=== PATIENT | female | born 1995 | race Caucasian/White ===

== ENCOUNTER 2017-01-29 00:47 | Inpatient (IN) | payer MEDICAID, OTHER ==
--- NOTE | 2017-01-29 01:42 | ED ---
Psych HPI - General Chief Complaint: Psychiatric Symptoms Stated Complaint: Mental Health Time Seen by Provider: 01/29/17 01:05 Source: patient, RN notes reviewed Mode of arrival: ambulatory Limitations: no limitations - History of Present Illness Initial Comments: 21-year-old female presents emergency Department with chief complaint of psychiatric evaluation. Patient states she's having a mental breakdown, possible psychotic break through. States she's been under a lot of stress in which she recently lost her children, significant other left her. Patient states that she has some personality changes she states she's been doing things that she's not aware of. He will room states that she is just not acting appropriately that they sometimes at the restrainer because she is just acting out. Patient states she normally is on multiple psychiatric medications though she is not on any of these medications. Patient states she has been self- medicating with marijuana and benzodiazepines. Patient denies any alcohol abuse. She states that she is not suicidal or homicidal at this time though she states that she started herself the other day. Patient is petition by friends in the room. - Related Data Previous Rx's Medication Instructions Recorded Hydrocodone/Acetaminophen [[place] 1 each PO Q6HR PRN #20 tab 08/30/14 5-325] methylPREDNISolone [Medrol] 1 pack PO DIRECTED #1 tab.ds.pk 08/30/14 Allergies Allergy/AdvReac Type Severity Reaction Status Date / Time aripiprazole [From Abilify] Allergy Rash/Hives Verified 08/30/14 14:10 Review of Systems ROS Statement: Those systems with pertinent positive or pertinent negative responses have been documented in the HPI. ROS Other: All systems not noted in ROS Statement are negative. Past Medical History Past Medical History: Asthma Additional Past Medical History / Comment(s): BORDERLINE PERSONALITY DISORDER History of Any Multi-Drug Resistant Organisms: None Reported Past Surgical History: Section, Tonsillectomy Additional Past Surgical History / Comment(s): SX ON STOMACH WHEN BABY Past Psychological History: Anxiety, Bipolar, Depression Smoking Status: Current every day smoker Past Alcohol Use History: None Reported Past Drug Use History: Marijuana General Exam Limitations: no limitations General appearance: alert, in no apparent distress Head exam: Present: atraumatic, normocephalic, normal inspection Eye exam: Present: normal appearance, PERRL, EOMI. Absent: scleral icterus, conjunctival injection, periorbital swelling Neck exam: Present: normal inspection, full ROM. Absent: tenderness, meningismus, lymphadenopathy Respiratory exam: Present: normal lung sounds bilaterally. Absent: respiratory distress, wheezes, rales, rhonchi, stridor Cardiovascular Exam: Present: regular rate, normal rhythm, normal heart sounds. Absent: systolic murmur, diastolic murmur, rubs, gallop, clicks Psychiatric exam: Present: anxious Skin exam: Present: warm, dry, intact, normal color. Absent: rash Course Vital Signs 01/29/17 00:51 Temperature 98.0 F Pulse Rate 95 Respiratory 16 Rate Blood Pressure 129/82 O2 Sat by Pulse 100 Oximetry Medical Decision Making - Lab Data Lab Results 01/29/17 Range/Units 02:10 Urine Opiates Screen Detected H (NotDetected) Ur Oxycodone Screen Not Detected (NotDetected) Urine Methadone Screen Not Detected (NotDetected) Ur Propoxyphene Screen Not Detected (NotDetected) Ur Barbiturates Screen Not Detected (NotDetected) U Tricyclic Antidepress Not Detected (NotDetected) Ur Phencyclidine Scrn Not Detected (NotDetected) Ur Amphetamines Screen Not Detected (NotDetected) U Methamphetamines Scrn Detected H (NotDetected) U Benzodiazepines Scrn Detected H (NotDetected) Urine Cocaine Screen Not Detected (NotDetected) U Marijuana (THC) Screen Detected H (NotDetected) Disposition Clinical Impression: Drug-induced psychotic disorder Disposition: ADMITTED IP TO THIS [facility] Condition: Stable Referrals: None,Stated [Primary Care Provider] - 1-2 days
[2017-01-29] MEDS ORDERED: ZIPRASIDONE 20 MG VIAL IM PRN (03:32)
[2017-01-29] MEDS ORDERED: MAG HYDROX/AL HYDROX/SIMETH 30 ML CUP PO PRN (03:32)
[2017-01-29] MEDS ORDERED: MAGNESIUM HYDROXIDE 2,400 MG/10 ML CUP PO PRN (03:32)
[2017-01-29 04:47] VITALS: RESP 16
--- NOTE | 2017-01-29 11:11 | P.MDCNMH ---
History of Present Illness H&P Date: 01/29/17 Chief Complaint: ''Mental breakdown'' 21-year-old female presents emergency Department with chief complaint of psychiatric evaluation. Patient has been having a ''mental breakdown'', progressively worsening anxiety symptoms, with associated hallucinations and delusions. She's been under a lot of stress lately because she recently lost her children, significant other left her. Patient states that she has some personality changes she states she's been doing things that she's not aware of. She has also been seeing people that don't exist, hearing their voices as well , talking to them like they were real people. She states that it has been '' scary'' to others to be around her lately. She tried to cut her wrist and arm twice over the last several days. Patient states she was on multiple psychiatric medications years ago but she stopped taking everything by herself. She hasn't been sleeping much the last few weeks, she would go 6-7 days without any sleep then she would sleep for a night. Patient states she has been self- medicating with marijuana and benzodiazepines. Patient denies any alcohol abuse. She states that she is not suicidal or homicidal at this time. Review of Systems 12 point review of system was performed, negative except for what is stated in HPI Past Medical History Past Medical History: Asthma Additional Past Medical History / Comment(s): BORDERLINE PERSONALITY DISORDER History of Any Multi-Drug Resistant Organisms: None Reported Past Surgical History: Section, Tonsillectomy Additional Past Surgical History / Comment(s): SX ON STOMACH WHEN BABY Past Psychological History: Anxiety, Bipolar, Depression Smoking Status: Current every day smoker Past Alcohol Use History: None Reported Past Drug Use History: Marijuana Medications and Allergies Home Medications Medication Instructions Recorded Confirmed Type No Known Home Medications [No 01/29/17 01/29/17 History Known Home Medications] Allergies Allergy/AdvReac Type Severity Reaction Status Date / Time aripiprazole [From Abilify] Allergy Rash/Hives Verified 08/30/14 14:10 Physical Exam Vitals: Vital Signs Temp Pulse Pulse Resp BP BP Pulse Ox 01/29/17 04:46 97.4 F L 80 16 103/55 100 01/29/17 03:22 98.0 F 87 18 115/58 98 01/29/17 00:51 98.0 F 95 16 129/82 100 Intake and Output 01/28/17 01/29/17 01/29/17 22:59 06:59 14:59 Other: Weight 54.6 kg Constitutional: No acute distress, conversant, pleasant Eyes:Anicteric sclerae, moist conjunctiva, no lid-lag, PERRLA, ENMT: Oropharynx clear, no erythema, exudates Neck: Supple, FROM, no masses, or JVD, No carotid bruits, No thyromegaly Lungs: Clear to auscultation, Clear to percussion, Normal respiratory effort, no accessory muscle use Cardiovascular: Heart regular in rate and rhythm, No murmurs, gallops, or rubs, No peripheral edema Abdominal: Soft, Nontender, no guarding, rebound or rigidity, Normoactive bowel sounds, No hepatomegaly, No splenomegaly, No palpable mass Skin: Normal temperature, tone, texture, turgor, no induration, No subcutaneous nodules, No rash, lesions, No ulcers Extremities: No digital cyanosis, No clubbing, Pedal pulses intact and symmetrical, Radial pulses intact and symmetrical, No calf tenderness Psychiatric: Alert and oriented to person, place and time, appropriate affect, intact judgement Neuro: Muscles Strength 5/5 in all 4 extremities, Sensation to light touch grossly present throughout, Cranial nerves II-XII grossly intact, no focal sensory deficits - Constitutional General appearance: no acute distress Cranial Nerve Examination - Cranial Nerves Cranial Nerve II- Optic: Intact Cranial Nerve III- Oculomotor: Intact Cranial Nerve IV- Trochlear: Intact Cranial Nerve V- Trigeminal: Intact Cranial Nerve - Abducens: Intact Cranial Nerve VII- Facial: Intact Cranial Nerve VIII- Auditory: Intact Cranial Nerve IX- Glossopharyngeal: Intact Cranial Nerve X- Vagus: Intact Cranial Nerve XI- Accessory: Intact Cranial Nerve XII- Hypoglossal: Intact Results Labs: Abnormal Lab Results - Last 24 Hours (Table) 01/29/17 Range/Units 02:10 Urine Opiates Screen Detected H (NotDetected) U Methamphetamines Scrn Detected H (NotDetected) U Benzodiazepines Scrn Detected H (NotDetected) U Marijuana (THC) Screen Detected H (NotDetected) Assessment and Plan Plan: 1-Acute severe anxiety disorder with psychotic features: Management per psych 2-Drug use disorder Labs reviewed Urine tox positive for marijuana, opiates, amphetamines and benzos. Heat Treating Furnace Tender regarding drug use. Psych to evaluate 3-Asthma, mild intermittent Stable Not requiring treatment at this point.
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
[2017-01-30] MEDS: ACETAMINOPHEN TAB 325 MG TAB PO PRN ×2 (06:25→11:30)
[2017-01-30 06:33] VITALS: BP 120/67; PULSE 79; TEMP 98.2
[2017-01-30] MEDS: LORazepam 1 MG TAB PO PRN (08:05)
[2017-01-30 08:57] LABS: Anisocytosis Slight; Basophils % (A) 1 %; CHCM 30.8; Eosinophils # (A) 0.1 k/uL (0-0.7); Eosinophils % (A) 2 %; HCT 39.4 % (34.0-46.0); HDW 2.57; HGB 12.1 gm/dL (11.4-16.0); Hypochromasia Moderate; Luc # (Auto) 0.12; Luc % (Auto) 2; Lymphocytes # (A) 1.8 k/uL (1.0-4.8); Lymphocytes % (A) 25 %; MCHC 30.8 g/dL (31.0-37.0); MCV 84.5 fL (80.0-100.0); Mean Platelet Volume 7.6; Monocytes # (A) 0.4 k/uL (0-1.0); Monocytes % (A) 6 %; Neutrophils # (A) 4.7 k/uL (1.3-7.7); Neutrophils % (A) 65 %; RBC 4.66 m/uL (3.80-5.40); RDW 17.3 % (11.5-15.5); WBC 7.2 k/uL (3.8-10.6); WBC (Perox) 7.56
[2017-01-30 09:16] LABS: ALT 30 U/L (9-52); AST 16 U/L (14-36); Alkaline Phosphatase 69 U/L (38-126); Anion Gap 7 mmol/L; Blood Urea Nitrogen 6 mg/dL (7-17); Calcium 9.4 mg/dL (8.4-10.2); Carbon Dioxide 21 mmol/L (22-30); Chloride 111 mmol/L (98-107); Cholesterol 130 mg/dL (<200); Glucose 108 mg/dL (74-99); HDL Cholesterol 57 mg/dL (40-60); Non-African American GFR(MDRD) >60 (>60 ml/min/1.73 sqM); Potassium 4.4 mmol/L (3.5-5.1); Sodium 139 mmol/L (137-145); Total Bilirubin 0.2 mg/dL (0.2-1.3); Total Protein 6.2 g/dL (6.3-8.2)
[2017-01-30 10:16] LABS: HCG,Qualitative Serum Not Detected
[2017-01-30] MEDS: AMANTADINE HCL 100 MG CAP PO SCH (11:30)
[2017-01-30] MEDS: ESCITALOPRAM 10 MG TAB PO SCH (11:30)
[2017-01-30] MEDS ORDERED: IBUPROFEN 400 MG TAB PO PRN (11:38)
[2017-01-30] MEDS ORDERED: CYCLOBENZAPRINE 10 MG TAB PO PRN (11:38)
--- NOTE | 2017-01-30 19:00 | P.PN ---
Progress Note - Text Progress Note Date: 01/30/17 INTERVAL HISTORY: Patient interviewed twice. She continues to be oppositional and labile although less so today. Patient is fixated today on discharge so she can get to see her children. Patient's securities attorney met with patient today and reported to treatment team that patient had a hearing scheduled for tomorrow (case is not a mental health). Horizontal Boring Mill Set Up Operator reports that since patient is not ready for discharge he will file for extension. Patient denies recent blackout episodes, SI, HI. MENTAL STATUS EXAM: * Appearance: alert, well groomed, appears stated age, steady gait * Behavior: no psychomotor agitation or psychomotor retardation, no abnormal movements, fair eye contact * Attitude: cooperative * Speech: normal rate, rhythm, fluency, articulation, volume, and prosody; primary language: Bengali * Mood: euthymic * Affect: congruent, reactive * Thought processes: linear, organized * Thought content: patient does not appear to be responding to internal stimuli ; patient denies auditory and visual hallucinations, no delusions appreciated * Insight: fair * Judgment: fair * Cognitive: oriented to all 3 spheres, average intelligence PLAN: * Continue hospitalization * * Continue Lexapro 10-mg PO QAM * * Start Amantadine 100-mg PO QAM * * Patient again encouraged to attend group, recreational, and activity therapes
[2017-01-31] MEDS: ESCITALOPRAM 10 MG TAB PO SCH (07:42)
[2017-01-31] MEDS: AMANTADINE HCL 100 MG CAP PO SCH (07:42)
[2017-01-31] MEDS: LORazepam 1 MG TAB PO PRN (07:43)
--- NOTE | 2017-02-04 23:29 | P.DS ---
Providers Date of admission: 01/29/17 03:29 Expected date of discharge: 01/31/17 Attending physician: Oswald Walker DO Consults: 01/29/17 03:32 Consult Physician Routine Consulting Provider: Farhan Fleming Consult Reason/Comments: H&P medical mangement Do you want consulting provider notified?: Already Contacted Primary care physician: Stated None - Discharge Diagnosis(es) (1) Borderline personality disorder Status: Acute (2) Mood disorder Status: Acute Hospital Course: Per SW: family meeting held with pt's friend Kim via phone. She confirmed pt is ready for dc and she expressed no concerns r/t her returning home upon d/c today. Pt friend presents as supportive stating she will help pt fill her rx and will pick her up today if dc. Pt states she is ready for dc and motivated to start services at [facility]. Pt denies s/h/i. Patient is 21 year female who presented to the Emergency Department requesting a psychiatric evaluation for increased anxiety and new onset hallucinations that started that started approximately 4 days ago. Patient is highly oppositional during interview and requires multiple prompts. She stated that she feels under a lot a stress, recently lost custody of her 2 children who are now in foster care, and her boyfriend broke up with her. She endorses blackout episodes, auditory and visual hallucinations of people and voices. Patient reports two attempts to cut her wrists twice this last week and walking around her apartment with a box repairer knife for no specific reason. She reports her friends have been freaked out and said patient "changes personalities" during noted blackout episodes when patient is aggressive towards them. Patient has a history of being on several psychotropic medications she cannot name at this time. She reports abruptly stopping them a few weeks ago. Since that time, she reports being angrier. After stopping said medications, patient developed a full body dyskinesia with writhing jerky movements involving her head, arms, trunk. No orobuccal movements noted. No facial movements noted. Patient also reports that she has not been sleeping well going 6-7 days with little to no sleep followed 1-2 days of normal sleep. Patient has been self-medicating on Xanax + Marijuana to induce sleep. Patient denies history of Methamphetamine use despite UDS being positive. She denies history of alcohol abuse. At this time, patient denies SI/HI. Amantadine was added for augmentation of depression and dyskinesia and within 1 day SIGNIFICANTLY decreased patient's full body dyskinesia. Recommendation is that this be titrated up in the future Discharge Medication List Amantadine HCl [Symmetrel] 100 mg PO DAILY #14 cap 01/31/17 [Rx] Cyclobenzaprine [Flexeril] 10 mg PO TID PRN tab 01/31/17 [Rx] Escitalopram [Lexapro] 10 mg PO DAILY #14 tab 01/31/17 [Rx] MENTAL STATUS EXAM: Appearance: alert, disheveled, appears stated age, steady gait Behavior: psychomotor agitation+++, fair eye contact Attitude: cooperative Speech: normal rate, rhythm, fluency, articulation, volume, and prosody; primary language: German Mood: dysphoric Affect: reactive, congruent Thought processes: linear Thought content: patient does not appear to be responding to internal stimuli; patient denies auditory and visual hallucinations, no delusions appreciated Insight: limited Judgment: poor Cognitive: oriented to all 3 spheres, average intelligence Patient Condition at Discharge: Stable Plan - Discharge Summary New Discharge Prescriptions: New Amantadine HCl [Symmetrel] 100 mg PO DAILY #14 cap Cyclobenzaprine [Flexeril] 10 mg PO TID PRN tab PRN Reason: Muscle Spasm Escitalopram [Lexapro] 10 mg PO DAILY #14 tab Discharge Medication List Amantadine HCl [Symmetrel] 100 mg PO DAILY #14 cap 01/31/17 [Rx] Cyclobenzaprine [Flexeril] 10 mg PO TID PRN tab 01/31/17 [Rx] Escitalopram [Lexapro] 10 mg PO DAILY #14 tab 01/31/17 [Rx] Follow up Appointment(s)/Referral(s): [facility] [Outside] - As Needed (intake at [facility] within 2 days of discharge. 02/01 or 02/02 ) None,Stated [Primary Care Provider] - 1-2 days Patient Instructions/Handouts: Brief Psychotic Disorder (GEN) Activity/Diet/Wound Care/Special Instructions: Activity and diet as tolerated. Avoid the use of street drugs and alcohol. Take all medications as prescribed. When you are in need of refills on your medications please contact your medical provider and/or outpatient psychiatrist to have this done. Please go to scheduled outpatient appointment for aftercare treatment. If symptoms return or become worse call the crisis line at [phone] and/or go to the nearest emergency room for an evaluation. Discharge Disposition: HOME SELF-CARE
== END 2017-01-31 14:08 | disposition home or self-care (01) | DRG 883 ==
LOC: EC 00:47 → 3MHU 03:29
PROVIDERS: ADMIT Psychiatry & Neurology Psychiatry; ATTEND Psychiatry & Neurology Psychiatry
DX: F60.3 Borderline personality disorder (principal); F32.9 Major depressive disorder, single episode, unspecified; F39 Unspecified mood [affective] disorder; F12.90 Cannabis use, unspecified, uncomplicated; F17.200 Nicotine dependence, unspecified, uncomplicated; F41.9 Anxiety disorder, unspecified; F60.89 Other specific personality disorders; Z91.5 Personal history of self-harm
CPT/HCPCS: 80053; 80061; 80306; 82075; 83036; 84439; 84443; 84703; 85025; 99285

== ENCOUNTER 2017-03-23 20:31 | Emergency (ER) | payer MEDICAID, OTHER ==
[2017-03-23 20:40] VITALS: BP 117/59; PULSE 100; RESP 18; TEMP 98.2
[2017-03-23 22:00] LABS: Appearance,Urine Cloudy (Clear); Bilirubin,Urine Negative (Negative); Blood,Urine Negative (Negative); Color,Urine Yellow; Glucose,Urine (UA) Negative (Negative); Ketones,Urine Negative (Negative); Leukocyte Esterase,Urine Small (Negative); Mucus,Urine Occasional /hpf; Nitrite,Urine Negative (Negative); PH, Urine 6.5 (5.0-8.0); Protein,Urine Trace (Negative); RBC,Urine 1 /hpf (0-5); Specific Gravity,Urine 1.023 (1.001-1.035); Squamous Epithelial Cell,Urine 11 /hpf (0-4); WBC,Urine 19 /hpf (0-5)
[2017-03-23] MEDS ORDERED: RX INFO: IV CONTRAST WAS GIVEN 1 EACH MISC MISCELLANE PRN (22:06)
--- NOTE | 2017-03-23 22:15 | ED ---
General Adult HPI - General Chief complaint: Abdominal Pain Stated complaint: Abd pain Time Seen by Provider: 03/23/17 21:55 Source: patient, RN notes reviewed Mode of arrival: ambulatory Limitations: no limitations - History of Present Illness Initial comments: 21-year-old female presents with chief complaint of abdominal pain. Patient has had 2 month history of upper abdominal pain. This is worse with ambulation. Pain is relieved by rest. She has also had some intermittent nausea and several episodes of vomiting over the past several weeks. Patient's family members encouraged patient to present to the emergency department for evaluation, concern for ectopic . Patient has had 3 C-sections and tubal ligation. She did have one missed. Approximately one month ago. She normally has regular menstrual cycles. Denies change in her bowels. Denies fever. She also complains of intermittent lightheadedness, worse with tobacco use. - Related Data Home Medications Medication Instructions Recorded Confirmed No Known Home Medications [No 03/23/17 03/23/17 Known Home Medications] Allergies Allergy/AdvReac Type Severity Reaction Status Date / Time aripiprazole [From Abilify] Allergy Rash/Hives Verified 03/23/17 21:35 Review of Systems ROS Statement: Those systems with pertinent positive or pertinent negative responses have been documented in the HPI. ROS Other: All systems not noted in ROS Statement are negative. Past Medical History Past Medical History: Asthma Additional Past Medical History / Comment(s): BORDERLINE PERSONALITY DISORDER History of Any Multi-Drug Resistant Organisms: None Reported Past Surgical History: Section, Tonsillectomy Additional Past Surgical History / Comment(s): SX ON STOMACH WHEN BABY Past Psychological History: Anxiety, Bipolar, Depression Smoking Status: Current every day smoker Past Alcohol Use History: None Reported Past Drug Use History: Marijuana General Exam Limitations: no limitations General appearance: alert, in no apparent distress Head exam: Present: atraumatic, normocephalic Eye exam: Present: normal appearance, PERRL ENT exam: Present: normal exam, normal oropharynx Neck exam: Present: normal inspection. Absent: tenderness Respiratory exam: Present: normal lung sounds bilaterally. Absent: respiratory distress Cardiovascular Exam: Present: regular rate, normal rhythm GI/Abdominal exam: Present: soft. Absent: distended, tenderness, guarding, rebound Extremities exam: Present: normal inspection, normal capillary refill. Absent: pedal edema Back exam: Present: normal inspection. Absent: full ROM Neurological exam: Present: alert, oriented X3 Psychiatric exam: Present: normal affect, normal mood Skin exam: Present: warm, dry, intact. Absent: cyanosis, diaphoretic Course Vital Signs 03/23/17 20:38 Temperature 98.2 F Pulse Rate 100 Respiratory 18 Rate Blood Pressure 117/59 O2 Sat by Pulse 98 Oximetry Medical Decision Making - Medical Decision Making 21-year-old presenting with 2 month history of upper abdominal pain. On examination abdomen is soft nontender nondistended. Laboratory studies are obtained, they are negative including normal white blood cell count, stable hemoglobin, urinalysis is contaminated, negative test. CT is obtained , does show small ventral hernia. Patient is informed of these results. She will follow-up with her primary care physician and general surgery as needed. Diagnosis: Ventral hernia - Lab Data Result diagrams: 03/23/17 22:24 03/23/17 22:24 Lab Results 03/23/17 03/23/17 03/23/17 Range/Units 21:50 21:50 22:24 WBC (3.8-10.6) k/uL RBC (3.80-5.40) m/uL Hgb (11.4-16.0) gm/dL Hct (34.0-46.0) % MCV (80.0-100.0) fL MCH (25.0-35.0) pg MCHC (31.0-37.0) g/dL RDW (11.5-15.5) % Plt Count (150-450) k/uL Neutrophils % (Manual) % Band Neutrophils % % Lymphocytes % (Manual) % Monocytes % (Manual) % Eosinophils % (Manual) % Neutrophils # (Manual) (1.3-7.7) k/uL Lymphocytes # (Manual) (1.0-4.8) k/uL Monocytes # (Manual) (0-1.0) k/uL Eosinophils # (Manual) (0-0.7) k/uL Nucleated RBCs (0-0) /100 WBC Manual Slide Review Large Platelets Polychromasia Hypochromasia Anisocytosis Microcytosis Sodium 143 (137-145) mmol/L Potassium 4.5 (3.5-5.1) mmol/L Chloride 106 (98-107) mmol/L Carbon Dioxide 26 (22-30) mmol/L Anion Gap 11 mmol/L BUN 14 (7-17) mg/dL Creatinine 0.70 (0.52-1.04) mg/dL Est GFR (MDRD) Af Amer >60 (>60 ml/min/1.73 sqM) Est GFR (MDRD) Non-Af >60 (>60 ml/min/1.73 sqM) Glucose 98 (74-99) mg/dL Plasma Lactic Acid Tim (0.7-2.0) mmol/L Calcium 9.9 (8.4-10.2) mg/dL Total Bilirubin 0.2 (0.2-1.3) mg/dL AST 20 (14-36) U/L ALT 30 (9-52) U/L Alkaline Phosphatase 80 (38-126) U/L Total Protein 7.5 (6.3-8.2) g/dL Albumin 4.2 (3.5-5.0) g/dL Amylase 69 (30-110) U/L Lipase 126 (23-300) U/L Urine Color Yellow Urine Appearance Cloudy H (Clear) Urine pH 6.5 (5.0-8.0) Ur Specific [place] 1.023 (1.001-1.035) Urine Protein Trace H (Negative) Urine Glucose (UA) Negative (Negative) Urine Ketones Negative (Negative) Urine Blood Negative (Negative) Urine Nitrite Negative (Negative) Urine Bilirubin Negative (Negative) Urine Urobilinogen 2.0 (<2.0) mg/dL Ur Leukocyte Esterase Small H (Negative) Urine RBC 1 (0-5) /hpf Urine WBC 19 H (0-5) /hpf Ur Squamous Epith Cells 11 H (0-4) /hpf Urine Mucus Occasional H (None) /hpf Urine HCG, Qual Not Detected (Not Detectd) 03/23/17 03/23/17 Range/Units 22:24 22:24 WBC 8.2 (3.8-10.6) k/uL RBC 4.51 (3.80-5.40) m/uL Hgb 11.4 (11.4-16.0) gm/dL Hct 36.2 (34.0-46.0) % MCV 80.2 (80.0-100.0) fL MCH 25.4 (25.0-35.0) pg MCHC 31.6 (31.0-37.0) g/dL RDW 18.0 H (11.5-15.5) % Plt Count 385 (150-450) k/uL Neutrophils % (Manual) 52 % Band Neutrophils % 1 % Lymphocytes % (Manual) 39 % Monocytes % (Manual) 8 % Eosinophils % (Manual) 1 % Neutrophils # (Manual) 4.30 (1.3-7.7) k/uL Lymphocytes # (Manual) 3.20 (1.0-4.8) k/uL Monocytes # (Manual) 0.66 (0-1.0) k/uL Eosinophils # (Manual) 0.08 (0-0.7) k/uL Nucleated RBCs 0 (0-0) /100 WBC Manual Slide Review Performed Large Platelets Present Polychromasia Present Hypochromasia Slight Anisocytosis Slight Microcytosis Slight Sodium (137-145) mmol/L Potassium (3.5-5.1) mmol/L Chloride (98-107) mmol/L Carbon Dioxide (22-30) mmol/L Anion Gap mmol/L BUN (7-17) mg/dL Creatinine (0.52-1.04) mg/dL Est GFR (MDRD) Af Amer (>60 ml/min/1.73 sqM) Est GFR (MDRD) Non-Af (>60 ml/min/1.73 sqM) Glucose (74-99) mg/dL Plasma Lactic Acid Tim 1.4 (0.7-2.0) mmol/L Calcium (8.4-10.2) mg/dL Total Bilirubin (0.2-1.3) mg/dL AST (14-36) U/L ALT (9-52) U/L Alkaline Phosphatase (38-126) U/L Total Protein (6.3-8.2) g/dL Albumin (3.5-5.0) g/dL Amylase (30-110) U/L Lipase (23-300) U/L Urine Color Urine Appearance (Clear) Urine pH (5.0-8.0) Ur Specific [place] (1.001-1.035) Urine Protein (Negative) Urine Glucose (UA) (Negative) Urine Ketones (Negative) Urine Blood (Negative) Urine Nitrite (Negative) Urine Bilirubin (Negative) Urine Urobilinogen (<2.0) mg/dL Ur Leukocyte Esterase (Negative) Urine RBC (0-5) /hpf Urine WBC (0-5) /hpf Ur Squamous Epith Cells (0-4) /hpf Urine Mucus (None) /hpf Urine HCG, Qual (Not Detectd) Disposition Clinical Impression: Ventral hernia Disposition: HOME SELF-CARE Condition: Good Instructions: Ventral Hernia (ED) Referrals: None,Stated [Primary Care Provider] - 1-2 days Julian Matthews MD [REFERRING] - 1-2 days Maricruz Marcelino MD [STAFF PHYSICIAN] - 1-2 days Time of Disposition: 23:08
[2017-03-23 22:37] LABS: Anisocytosis Slight; HCT 36.2 % (34.0-46.0); HGB 11.4 gm/dL (11.4-16.0); Hypochromasia Slight; MCH 25.4 pg (25.0-35.0); MCHC 31.6 g/dL (31.0-37.0); MCV 80.2 fL (80.0-100.0); Mean Platelet Volume 7.4; Microcytosis Slight; RBC 4.51 m/uL (3.80-5.40); WBC 8.2 k/uL (3.8-10.6)
[2017-03-23 22:42] LABS: ALT 30 U/L (9-52); AST 20 U/L (14-36); Albumin 4.2 g/dL (3.5-5.0); Alkaline Phosphatase 80 U/L (38-126); Amylase 69 U/L (30-110); Anion Gap 11 mmol/L; Blood Urea Nitrogen 14 mg/dL (7-17); Calcium 9.9 mg/dL (8.4-10.2); Carbon Dioxide 26 mmol/L (22-30); Chloride 106 mmol/L (98-107); Glucose 98 mg/dL (74-99); Lipase 126 U/L (23-300); Potassium 4.5 mmol/L (3.5-5.1); Sodium 143 mmol/L (137-145); Total Bilirubin 0.2 mg/dL (0.2-1.3); Total Protein 7.5 g/dL (6.3-8.2)
--- NOTE | 2017-03-23 22:58 | CT ---
EXAMINATION TYPE: CT abdomen pelvis w con DATE OF EXAM: 03/23/2017 COMPARISON: NONE HISTORY: Lump by umbilicus. CT DLP: 343.1 mGycm Automated exposure control for dose reduction was used. TECHNIQUE: Helical acquisition of images was performed from the lung bases through the pelvis. CONTRAST: Performed without Oral Contrast and with IV Contrast, patient injected with 100 mL of Omnipaque 300. FINDINGS: Lung bases are clear. There is no pleural effusion. Heart size is normal. Liver spleen pancreas gallbladder appear normal. Bile ducts are not dilated. There is no adrenal mass . Kidneys show satisfactory contrast opacification. There is no hydronephrosis. Bladder distends smoothly. There is no sign of a pelvic mass. There is no ascites. Uterus is antevert ed. I see no intestinal wall thickening. There are no dilated loops. Appendix appears normal. Bony st ructures are intact. There is a 3 x 1 cm oval-shaped fat density mass above the umbilicus that could be a small ventral he rnia containing omental fat. I do not see an umbilical hernia. IMPRESSION: SMALL LIPOMA OR VENTRAL HERNIA ABOVE THE UMBILICUS THAT CONTAINS OMENTAL FAT. THIS COULD ACCOUNT FOR A SMALL PALPABLE MASS. OTHERWISE NEGATIVE EXAM.
[2017-03-23 23:00] LABS: Band Neutrophils % 1 %; Eosinophils # (M) 0.08 k/uL (0-0.7); Monocytes # (M) 0.66 k/uL (0-1.0); Neutrophils % (M) 52 %; Nucleated Red Blood Cells 0 /100 WBC (0-0); Total Cells Counted 200
[2017-03-23 23:03] LABS: Large Platelets Present
[2017-03-23 23:04] LABS: Platelet Count 385 k/uL (150-450); Polychromasia Present
== END 2017-03-23 23:14 | disposition home or self-care (01) ==
LOC: SUPCPDRO 20:31 → EC 20:31
DX: K43.9 Ventral hernia without obstruction or gangrene (principal); R10.10 Upper abdominal pain, unspecified; R11.2 Nausea with vomiting, unspecified; R42 Dizziness and giddiness; F17.200 Nicotine dependence, unspecified, uncomplicated; Z88.8 Allergy status to other drugs, medicaments and biological substances; Z98.890 Other specified postprocedural states
CPT/HCPCS: 36415; 80053; 82150; 83605; 83690; 85025; 81001; 81025; 74177; 99284; Q9967

== ENCOUNTER 2018-03-21 16:30 | Emergency (ER) | payer OTHER ==
[2018-03-21 17:21] VITALS: BP 83/55; PULSE 119; RESP 18; TEMP 98.4
[2018-03-21] MEDS ORDERED: ACETAMINOPHEN TAB 325 MG TAB PO STA (18:22)
[2018-03-21 18:39] LABS: Appearance,Urine Cloudy (Clear); Bacteria,Urine Rare /hpf; Bilirubin,Urine Negative (Negative); Blood,Urine Negative (Negative); Color,Urine Yellow; Glucose,Urine (UA) Negative (Negative); Ketones,Urine Negative (Negative); Leukocyte Esterase,Urine Small (Negative); Mucus,Urine Occasional /hpf; Nitrite,Urine Negative (Negative); PH, Urine 5.5 (5.0-8.0); Protein,Urine Trace (Negative); RBC,Urine 2 /hpf (0-5); Specific Gravity,Urine 1.028 (1.001-1.035); Squamous Epithelial Cell,Urine 12 /hpf (0-4); Urobilinogen,Urine <2.0 mg/dL (<2.0)
[2018-03-21] MEDS ORDERED: KETOROLAC 60 MG/2 ML VIAL IM STA (18:50)
--- NOTE | 2018-03-21 19:21 | ED ---
General Adult HPI - General Chief complaint: Back Pain/Injury Stated complaint: FALL FROM LADDER Source: patient, RN notes reviewed, old records reviewed Mode of arrival: ambulatory Limitations: no limitations - History of Present Illness Initial comments: 22-year-old female patient past medical history of chronic lumbar back pain, asthma presents to ED with acute exacerbation of chronic back pain. 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 Patient denies any acute injury, fall, trauma. Patient states that she feels as if she is having back spasms in her right paralumbar spine region. Patient states that this back pain she is currently experiencing is similar to back pain that she has felt in the past. Patient denies any other symptoms. Patient denies chest pain, shortness of breath, abdominal pain, nausea vomiting diarrhea, paresthesias, loss of bowel or bladder control, IV drug use, fever/chills. Systemic: Pt denies fatigue, myalgia, fever/chills, rash. Pt denies weakness, night sweats, weight loss. Neuro: Pt denies headache, visual disturbances, syncope or pre-syncope. HEENT: Pt denies ocular discharge or irritation, otalgia, rhinorrhea, pharyngitis or notable lymphadenopathy. Cardiopulmonary: Pt denies chest pain, SOB, heart palpitations, dyspnea on exertion. Abdominal/GI: Pt denies abdominal pain, n/v/d. : Pt denies dysuria, burning w/ urination, frequency/urgency. Denies new onset urinary or bowel incontinence. MSK: Pt denies myalgia, loss of strength or function in extremities. Neuro: Pt denies new onset weakness, paresthesias. - Related Data Home Medications Medication Instructions Recorded Confirmed No Known Home Medications 03/23/17 03/23/17 Allergies Allergy/AdvReac Type Severity Reaction Status Date / Time aripiprazole [From Abilify] Allergy Rash/Hives Verified 03/21/18 17:19 Review of Systems ROS Statement: Those systems with pertinent positive or pertinent negative responses have been documented in the HPI. ROS Other: All systems not noted in ROS Statement are negative. Past Medical History Past Medical History: Asthma Additional Past Medical History / Comment(s): BORDERLINE PERSONALITY DISORDER History of Any Multi-Drug Resistant Organisms: None Reported Past Surgical History: Section, Tonsillectomy Additional Past Surgical History / Comment(s): SX ON STOMACH WHEN BABY Past Psychological History: Anxiety, Bipolar, Depression Smoking Status: Current every day smoker Past Alcohol Use History: None Reported Past Drug Use History: Marijuana General Exam - General Exam Comments Initial Comments: Constitutional: NAD, AOX3, Pt has pleasant affect. HEENT: NC/AT, trachea midline, neck supple, no lymphadenopathy. Posterior pharynx non erythematous, without exudates. External ears appear normal, without discharge. Mucous membranes moist. Eyes PERRLA, EOM intact. There is no scleral icterus. No pallor noted. Cardiopulmonary: RRR, no murmurs, rubs or gallops, no JVD noted. Mild amount of wheezing noted in upper lobe, lower lobes CTAB. No peripheral edema. Abdominal exam: Abdomen soft and non-distended. Abdomen non-tender to palpation in all 4 quadrants. Bowel sounds active in LLQ. No hepatosplenomegaly. No ecchymosis Neuro: CN II-XII grossly intact. No nuchal rigidity. MSK: Right straight leg raise positive. Quadriceps, psoas muscle strength 5 out of 5 bilaterally. Sensation intact bilaterally. Heel toe walking intact. Patellar and Achilles reflexes 2 out of 4. No posterior calf tenderness bilaterally, homans sign negative bilaterally. Posterior tibialis and radial pulse +2 bilaterally. Sensation intact in upper and lower extremities. Full active ROM in upper and lower extremities, 5/5 strength. Limitations: no limitations Course Vital Signs 03/21/18 17:19 Temperature 98.4 F Pulse Rate 119 H Respiratory 18 Rate Blood Pressure 83/55 O2 Sat by Pulse 99 Oximetry Medical Decision Making - Medical Decision Making 22-year-old female patient past medical history of chronic lumbar back pain, asthma presents to ED with acute exacerbation of chronic back pain. 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 Patient denies any acute injury, fall, trauma. Patient states that she feels as if she is having back spasms in her right paralumbar spine region. Patient states that this back pain she is currently experiencing is similar to back pain that she has felt in the past. Patient denies any other symptoms. Patient denies chest pain, shortness of breath, abdominal pain, nausea vomiting diarrhea, paresthesias, loss of bowel or bladder control, IV drug use, fever/chills. Physical exam displayed Right straight leg raise positive. Quadriceps, psoas muscle strength 5 out of 5 bilaterally. Sensation intact bilaterally. Heel toe walking intact. Patellar and Achilles reflexes 2 out of 4. Laboratory investigations displayed a negative hCG, UA non-impressive. Patient diagnosed with lumbar back strain. Mild amount of wheezing noted on exam, pt has as history of asthma. Reccomended pt a CXR and breathing tx, pt declined states she wants to go home. Patient was to be discharged with muscle relaxers, ibuprofen, however patient left without discharge paperwork. Patient was recommended to f/u with PCP in 1-2 days. Case discussed with Dr. Fernandez. - Lab Data Lab Results 03/21/18 03/21/18 Range/Units 18:19 18:19 Urine Color Yellow Urine Appearance Cloudy H (Clear) Urine pH 5.5 (5.0-8.0) Ur Specific [place] 1.028 (1.001-1.035) Urine Protein Trace H (Negative) Urine Glucose (UA) Negative (Negative) Urine Ketones Negative (Negative) Urine Blood Negative (Negative) Urine Nitrite Negative (Negative) Urine Bilirubin Negative (Negative) Urine Urobilinogen <2.0 (<2.0) mg/dL Ur Leukocyte Esterase Small H (Negative) Urine RBC 2 (0-5) /hpf Urine WBC 2 (0-5) /hpf Ur Squamous Epith Cells 12 H (0-4) /hpf Urine Bacteria Rare H (None) /hpf Urine Mucus Occasional H (None) /hpf Urine HCG, Qual Not Detected (Not Detectd) Disposition Clinical Impression: Lumbar back sprain Disposition: Left Against Medical Advice Is patient prescribed a controlled substance at d/c from ED?: No Referrals: None,Stated [Primary Care Provider] - 1-2 days
[2018-03-21] MEDS ORDERED: IPRATROPIUM-ALBUTEROL 3 ML NEB INHALATION STA (19:27)
== END 2018-03-21 19:46 | disposition left against medical advice (07) ==
LOC: EC 16:30
DX: S33.5XXA Sprain of ligaments of lumbar spine, initial encounter (principal); J45.909 Unspecified asthma, uncomplicated; F17.200 Nicotine dependence, unspecified, uncomplicated; Z88.8 Allergy status to other drugs, medicaments and biological substances; X50.0XXA Overexertion from strenuous movement or load, initial encounter; Y93.89 Activity, other specified
CPT/HCPCS: 81001; 81025; 99284; 96372; J1885

== ENCOUNTER 2018-09-15 09:30 | Emergency (ER) | payer OTHER ==
[2018-09-15 09:35] VITALS: BP 95/65; PULSE 93; TEMP 98.1
[2018-09-15 09:45] VITALS: RESP 16
--- NOTE | 2018-09-15 10:03 | ED ---
URI HPI - General Chief Complaint: Upper Respiratory Infection Stated Complaint: sore throat Time Seen by Provider: 09/15/18 09:42 Source: patient, RN notes reviewed Mode of arrival: ambulatory Limitations: no limitations - History of Present Illness Initial Comments: 22-year-old female presents emergency Department chief complaint cough congestion for last couple days. Patient states that the congestion is making hard to breathe. She has no prior lung disease. Denies seasonal ALLERGY issues in the past. Patient states she has nasal drainage, scratchy throat, cough which is productive of phlegm. No [id number] cough and cold medications use. Has no known ALLERGIES other than Abilify. Patient reports that she has a known sick contacts. Denies any rashes. - Related Data Previous Rx's Medication Instructions Recorded Fluticasone Nasal [place] [Flonase 2 spr EA NOSTRIL DAILY #1 bottle 09/15/18 Nasal [place]] Loratadine 10 mg PO DAILY #14 tablet 09/15/18 predniSONE 50 mg PO DAILY #5 tab 09/15/18 Allergies Allergy/AdvReac Type Severity Reaction Status Date / Time aripiprazole [From Abilify] Allergy Rash/Hives Verified 09/15/18 10:06 Review of Systems ROS Statement: Those systems with pertinent positive or pertinent negative responses have been documented in the HPI. ROS Other: All systems not noted in ROS Statement are negative. Past Medical History Past Medical History: Asthma Additional Past Medical History / Comment(s): BORDERLINE PERSONALITY DISORDER History of Any Multi-Drug Resistant Organisms: None Reported Past Surgical History: Section, Tonsillectomy Additional Past Surgical History / Comment(s): SX ON STOMACH WHEN BABY Past Psychological History: Anxiety, Bipolar, Depression Smoking Status: Current every day smoker Past Alcohol Use History: None Reported Past Drug Use History: Marijuana General Exam General appearance: alert, in no apparent distress Head exam: Present: atraumatic, normocephalic, normal inspection Eye exam: Present: normal appearance, PERRL, EOMI. Absent: scleral icterus, conjunctival injection, periorbital swelling ENT exam: Present: mucous membranes moist, TM's normal bilaterally, normal external ear exam. Absent: normal exam, normal oropharynx (Postnasal drainage) Neck exam: Present: normal inspection. Absent: tenderness, meningismus, lymphadenopathy Respiratory exam: Present: wheezes. Absent: normal lung sounds bilaterally, respiratory distress, rales, rhonchi, stridor Cardiovascular Exam: Present: regular rate, normal rhythm, normal heart sounds. Absent: systolic murmur, diastolic murmur, rubs, gallop, clicks Course Vital Signs 09/15/18 09/15/18 09:33 09:45 Temperature 98.1 F Pulse Rate 93 Respiratory 18 16 Rate Blood Pressure 95/65 O2 Sat by Pulse 99 Oximetry Medical Decision Making - Medical Decision Making 22-year-old female presents emergency from chief complaint of cough congestion. Patient has a URI. Patient is in mild wheezing on exam concern for acute bronchitis. Patient given prednisone, Flonase and Claritin. Patient will fo llow-up with PCP and return for any worsening symptoms. Disposition Clinical Impression: Bronchitis, Upper respiratory infection Disposition: HOME SELF-CARE Condition: Stable Instructions (If sedation given, give patient instructions): Upper Respiratory Infection (ED) Additional Instructions: Please return to the Emergency Department if symptoms worsen or any other concerns. Prescriptions: Fluticasone Nasal [place] [Flonase Nasal [place]] 2 spr EA NOSTRIL DAILY #1 bottle Loratadine 10 mg PO DAILY #14 tablet predniSONE 50 mg PO DAILY #5 tab Is patient prescribed a controlled substance at d/c from ED?: No Referrals: None,Stated [Primary Care Provider] - 1-2 days Time of Disposition: 10:26
--- NOTE | 2018-09-15 10:09 | XR ---
EXAMINATION TYPE: XR chest 2V DATE OF EXAM ORDERED: 09/15/2018 HISTORY: cough. REFERENCE: Previous study dated 02/19/2014. FINDINGS: The lungs are clear. Pleural spaces are clear. Heart size is normal. IMPRESSION: NORMAL CHEST.
== END 2018-09-15 10:30 | disposition home or self-care (01) ==
LOC: EC 09:30
DX: J40 Bronchitis, not specified as acute or chronic (principal); J06.9 Acute upper respiratory infection, unspecified; F17.200 Nicotine dependence, unspecified, uncomplicated; Z88.8 Allergy status to other drugs, medicaments and biological substances; Z90.89 Acquired absence of other organs
CPT/HCPCS: 71046; 99283